=== PATIENT | female | born 1960 | race Caucasian/White ===

== ENCOUNTER 2017-04-22 02:48 | Emergency (ER) | payer BC, OTHER ==
[2017-04-22] MEDS ORDERED: Ondansetron 4 MG/2 ML SDV IM ONE (02:57)
[2017-04-22] MEDS ORDERED: HYDROmorphone 2 MG/ML Syringe IM ONE (02:57)
[2017-04-22] MEDS ORDERED: Ondansetron 4 MG Tab.DIS PO ONE (03:10)
[2017-04-22 03:42] LABS: CHLORIDE,CL 99 mmol/L (98-110); SODIUM,NA 134 mmol/L (136-146)
[2017-04-22] MEDS ORDERED: HYDROmorphone 1 MG/ML Syringe IVPUSH ONE (04:34)
--- NOTE | 2017-04-22 05:10 | EDM.PDOC ---
ED HPI GENERAL MEDICAL PROBLEM - General Chief Complaint: Back Pain or Injury Stated Complaint: AMBULANCE Time Seen by Provider: 04/22/17 05:10 - History of Present Illness INITIAL COMMENTS - FREE TEXT/NARRATIVE: HISTORY AND PHYSICAL: History of present illness: Patient is 57-year-old white female history of metastatic cancer with advanced disease who presents with a concern of exacerbation of her chronic pain secondary to metastatic disease. She is on multiple medications including MS Contin and has presented tonight with breakthrough pain her pain mainly relates to her lower back for which she's known to have metastatic disease. She denies incontinence or retention followed bladder Review of systems: As per history of present illness and below otherwise all systems reviewed and negative. Past medical history: As per history of present illness and as reviewed below otherwise noncontributory. Surgical history: As per history of present illness and as reviewed below otherwise noncontributory. Social history: No reported history of drug or alcohol abuse. Family history: As per history of present illness and as reviewed below otherwise noncontributory. Physical exam: HEENT: Atraumatic, normocephalic, pupils reactive, negative for conjunctival pallor or scleral icterus, mucous membranes moist, throat clear, neck supple, nontender, trachea midline. Lungs: Clear to auscultation, breath sounds equal bilaterally, chest nontender. Heart: S1S2, regular, negative for clicks, rubs, or JVD. Abdomen: Soft, nondistended, no localized tenderness. Pelvis: Stable nontender. Genitourinary: Deferred. Rectal: Deferred. Extremities: Atraumatic, negative for cords or calf pain. Neurovascular unremarkable. Neuro: Awake, alert, oriented. Follows commands moves all extremities grossly nonfocal exam Diagnostics: CT lumbar spine Therapeutics: Dilaudid 1 mg IM and Zofran 4 mg IM Impression: #1 back pain secondary to metastatic disease with breakthrough pain Definitive disposition and diagnosis as appropriate pending reevaluation and review of above. lower back Pain Score (Numeric/FACES): 10 - Related Data Allergies Allergy/AdvReac Type Severity Reaction Status Date / Time clindamycin Allergy Cannot Verified 04/22/17 02:59 Remember Home Meds: Home Meds Alendronate [Fosamax] 35 mg PO WEEKLY 04/22/17 [History] Dexamethasone 0.5 mg PO BID 04/22/17 [History] Gabapentin [Neurontin] 300 mg PO TID 04/22/17 [History] LORazepam 0.5 mg PO TID 04/22/17 [History] Morphine [MS Contin] 30 mg PO BEDTIME 04/22/17 [History] Morphine [MS Contin] 60 mg PO BID 04/22/17 [History] Pantoprazole [ProTONIX] 40 mg PO DAILY 04/22/17 [History] Past Medical History - Past Health History Medical/Surgical History: Denies Medical/Surgical History HEENT History: Reports: Impaired Vision Other HEENT History: wears glasses Musculoskeletal History: Reports: Back Pain, Chronic Oncologic (Cancer) History: Reports: Breast - Past Surgical History Female Surgical History: Reports: Breast Biopsy, Mastectomy Other Female Surgeries/Procedures: bilateral mastectomy Social & Family History - Family History Family Medical History: Noncontributory - Tobacco Use Smoking Status *Q: Never Smoker - Recreational Drug Use Recreational Drug Use: No ED ROS GENERAL - Review of Systems Review Of Systems: ROS reveals no pertinent complaints other than HPI. ED EXAM, GENERAL - Physical Exam Exam: See Below (See dictation) Course - Vital Signs Last Recorded V/S: Last Vital Signs Temp 37.3 C 04/22/17 02:50 Pulse 107 H 04/22/17 04:37 Resp 20 04/22/17 04:37 BP 114/54 L 04/22/17 04:37 Pulse Ox 97 04/22/17 04:37 - Orders/Labs/Meds Orders: Active Orders 24 hr Category Date Time Status Lumbar Spine wo Cont [CT] Stat Exams 04/22/17 03:01 Taken Labs: Laboratory Tests 04/22/17 04/22/17 Range/Units 03:05 03:05 WBC 8.06 (4.0-11.0) K/uL RBC 3.63 L (4.30-5.90) M/uL Hgb 10.1 L (12.0-16.0) g/dL Hct 32.1 L (36.0-46.0) % MCV 88.4 (80.0-98.0) fL MCH 27.8 (27.0-32.0) pg MCHC 31.5 (31.0-37.0) g/dL RDW Std Deviation 52.7 (28.0-62.0) fl RDW Coeff of Akshat 16 H (11.0-15.0) % Plt Count 202 (150-400) K/uL MPV 8.40 (7.40-12.00) fL Neut % (Auto) 77.3 (48.0-80.0) % Lymph % (Auto) 9.9 L (16.0-40.0) % [place] % (Auto) 12.3 (0.0-15.0) % Eos % (Auto) 0.4 (0.0-7.0) % Baso % (Auto) 0.1 (0.0-1.5) % Neut # (Auto) 6.2 H (1.4-5.7) K/uL Lymph # (Auto) 0.8 (0.6-2.4) K/uL [place] # (Auto) 1.0 H (0.0-0.8) K/uL Eos # (Auto) 0.0 (0.0-0.7) K/uL Baso # (Auto) 0.0 (0.0-0.1) K/uL Nucleated RBC % 0.0 /100WBC Nucleated RBCs # 0 K/uL Sodium 134 L (136-146) mmol/L Potassium 3.4 L (3.5-5.1) mmol/L Chloride 99 (98-110) mmol/L Carbon Dioxide 17 L (21-31) mmol/L BUN 9 (6.0-23.0) mg/dL Creatinine 0.5 L (0.6-1.5) mg/dL Est Cr Clr Drug Dosing TNP Estimated GFR (MDRD) > 60.0 ml/min Glucose 75 (60-110) mg/dL Calcium 9.0 (8.8-10.8) mg/dL Total Bilirubin 1.0 (0.1-1.5) mg/dL AST 89 H (5-40) IU/L ALT 23 (8-54) IU/L Alkaline Phosphatase 927 H (40-150) Total Protein 6.7 (6.0-8.0) g/dL Albumin 3.3 L (3.5-5.0) g/dL Globulin 3.4 (2.0-3.5) g/dL Albumin/Globulin Ratio 1.0 L (1.3-2.8) Meds: Medications Discontinued Medications Generic Name Dose Route Start Last Admin Trade Name Freq PRN Reason Stop Dose Admin Hydromorphone HCl 1 mg 04/22/17 02:57 04/22/17 03:17 Dilaudid IM 04/22/17 02:58 1 mg ONETIME ONE Administration Hydromorphone HCl 1 mg 04/22/17 04:34 04/22/17 04:40 Dilaudid IVPUSH 04/22/17 04:35 1 mg ONETIME ONE Administration Ondansetron HCl 4 mg 04/22/17 02:57 04/22/17 03:17 Zofran IM 04/22/17 02:58 Not Given ONETIME ONE Ondansetron HCl 4 mg 04/22/17 03:10 04/22/17 03:17 Zofran Odt PO 04/22/17 03:11 4 mg ONETIME ONE Administration Departure - Departure Time of Disposition: 05:09 Disposition: Home, Self-Care 01 Condition: Good Clinical Impression: Chronic back pain, Metastatic cancer - Discharge Information Referrals: PCP,None [Primary Care Provider] - Additional Instructions: The following information is given to patients seen in the emergency department who are being discharged to home. This information is to outline your options for follow-up care. We provide all patients seen in our emergency department with a follow-up referral. The need for follow-up, as well as the timing and circumstances, are variable depending upon the specifics of your emergency department visit. If you don't have a primary care physician on staff, we will provide you with a referral. We always advise you to contact your personal physician following an emergency department visit to inform them of the circumstance of the visit and for follow-up with them and/or the need for any referrals to a consulting specialist. The emergency department will also refer you to a specialist when appropriate. This referral assures that you have the opportunity for followup care with a specialist. All of these measure are taken in an effort to provide you with optimal care, which includes your followup. Under all circumstances we always encourage you to contact your private physician who remains a resource for coordinating your care. When calling for followup care, please make the office aware that this follow-up is from your recent emergency room visit. If for any reason you are refused follow-up, please contact the [facility] emergency department at and asked to speak to the emergency department charge nurse. Continue current medications follow primary medical doctor in 24-48 hours or return as needed as discussed - My Orders Last 24 Hours: My Active Orders 04/22/17 03:01 Lumbar Spine wo Cont [CT] Stat - Assessment/Plan Last 24 Hours: My Active Orders 04/22/17 03:01 Lumbar Spine wo Cont [CT] Stat
[2017-04-22 05:50] VITALS: BP 125/64
--- NOTE | 2017-04-23 13:13 | CT ---
EXAM DATE: 04/22/17 PATIENT'S AGE: 57 Patient: GREGORY CAPELLAN Facility: [place], [place] Site . Site : [id number] Study: CT Spine Lumbar wo cont [id number]/27/2017 3:45:29 AM Ordering Physician: Doctor Mccollum Final Report: INDICATION: Low back pain for 3 days. History of prolapsed disc and cancer. TECHNIQUE: CT lumbar spine without contrast. COMPARISON: None. FINDINGS: Mild leftward convex curvature of the lumbar spine. Mild to moderate multilevel degenerative changes. There is widespread sclerotic osseous metastatic disease. No evidence of acute fracture. Limited imaging of the contents within the central canal is unremarkable. Suspected low attenuation liver lesions concerning for metastasis, for example as seen on axial image 10 of series 202. Trace right pleural effusion and indeterminate right basilar opacity. IMPRESSION: No acute lumbar spine fracture. Widespread sclerotic osseous metastatic disease. Mild to moderate degenerative changes. Hepatic metastasis suspected. Trace right pleural effusion and indeterminate right lower lobe opacity. Dictated by Hesham Alejandro MD @ 04/22/2017 3:59:54 AM Dictated by: Hesham Alejandro MD @ 04/22/2017 04:00:09 (Electronic Signature) Report Signed by Proxy. PREET
== END 2017-04-22 05:48 | disposition home or self-care (01) ==
LOC: MW.ED 02:48
DX: M54.5 Low back pain (principal); G89.29 Other chronic pain; C79.9 Secondary malignant neoplasm of unspecified site; Z79.899 Other long term (current) drug therapy; Z98.890 Other specified postprocedural states; Z88.1 Allergy status to other antibiotic agents
CPT/HCPCS: 36415; 72131; 80053; 85025; 96372; 96374; 99284; A9270; J1170; 99283